=== PATIENT | female | born 1955 | race Caucasian/White ===

== ENCOUNTER 2016-05-10 20:27 | Emergency (ER) | payer BC ==
[2016-05-10] MEDS ORDERED: NS 0.9% 1000 ML* 1,000 ML IV ONE (20:44)
[2016-05-10] MEDS ORDERED: Aspirin Low Dose CHEW TAB* 81 MG PO ONE (20:44)
[2016-05-10 21:06] LABS: Hematocrit 37 % (35-47); Hemoglobin 12.4 g/dl (12.0-16.0); Mean Corpuscular HGB Conc 34 g/dl (31-36); Mean Corpuscular Hemoglobin 30 pg (27-31); Mean Corpuscular Volume 89 fL (80-97); Mean Platelet Volume 10 um3 (7.4-10.4); Red Cell Distribution Width 13 % (10.5-15); White Blood Count 5.1 10^3/ul (3.5-10.8)
[2016-05-10 21:28] LABS: Albumin 4.4 g/dL (3.2-5.2); BUN/Creatinine Ratio 33.3 (8-20); EGFR African American 131.6 (>60); EGFR Non-African American 102.3 (>60); Globulin 2.7 g/dL (2-4); Total Bilirubin 0.5 mg/dL (0.2-1.0); Total Protein 7.1 g/dL (6.4-8.9)
--- NOTE | 2016-05-10 21:31 | RAD ---
HISTORY: Supraventricular tachycardia COMPARISONS: November 04, 2012 VIEWS:1: Single frontal portable view of the chest at 8:56 PM FINDINGS: LINES AND TUBES: None. CARDIOMEDIASTINAL SILHOUETTE: The cardiomediastinal silhouette is normal for portable technique. PLEURA: The costophrenic angles are sharp. No pleural abnormalities are noted. LUNG PARENCHYMA: The lungs are clear. ABDOMEN: The upper abdomen is clear. There is no subphrenic gas. BONES AND SOFT TISSUES: No bone or soft tissue abnormalities are noted. IMPRESSION: NO ACTIVE CARDIOPULMONARY DISEASE.
--- NOTE | 2016-05-10 21:55 | ED ---
Dereje Vegas Billy, scribed for Jf Casas MD on 05/10/16 at 2057 . Palpitations / Dysrhythmia - HPI Summary HPI Summary: Patient is a 61 year-old female with a history of SVT coming to [facility] presenting with rapid heart beat at 2015 tonight. She was BIBA and given adenosine en route, which significantly improved her symptoms. She states that she measured a heart rate in the 220s, which improved to the 130s after adenosine. Patient reports dizziness and near-syncope at onset. Patient states that prior similar episodes have been related to hypokalemia. - History of Current Complaint Chief Complaint: EDDysrhythmPalp Time Seen by Provider: 05/10/16 20:36 Hx Obtained From: Patient Onset/Duration: Gradual Onset, Lasting Minutes, Still Present Timing: Constant Severity Initially: Moderate Severity Currently: Moderate Character: Fast Aggravating: Nothing Alleviating: Medication - adenosine Associated Signs & Symptoms: Dizzy - near-syncope - Allergy/Home Medications Allergies/Adverse Reactions: Allergies Allergy/AdvReac Type Severity Reaction Status Date / Time Azithromycin [From Zithromax] Allergy Rash Verified 05/10/16 21:05 PMH/Surg Hx/FS Hx/Imm Hx Endocrine/Hematology History: Denies: Hx Diabetes Respiratory History: Reports: Other Respiratory Problems/Disorders - SVT Denies: Hx Asthma, Hx Chronic Obstructive Pulmonary Disease (COPD) Musculoskeletal History: Denies: Hx Osteoporosis Neurological History: Reports: Other Neuro Impairments/Disorders - chronic fatigue syndrome - Cancer History Hx Chemotherapy: No Hx Radiation Therapy: No Infectious Disease History: No Infectious Disease History: Denies: Traveled Outside the [place] in Last 30 Days - Family History Known Family History: Positive: Hypertension - mother, Diabetes - mother Family History: Per EMR, mother with DM s/p kidney transplant. - Social History Alcohol Use: None Hx Substance Use: No Substance Use Type: Reports: None Hx Tobacco Use: No Smoking Status (MU): Never Smoked Tobacco Review of Systems Positive: Palpitations Neurological: Other - dizziness and near-syncope at onset All Other Systems Reviewed And Are Negative: Yes Physical Exam Triage Information Reviewed: Yes Vital Signs On Initial Exam: Initial Vitals Temp Pulse Resp BP Pulse Ox 98.2 F 99 16 138/91 98 05/10/16 20:27 05/10/16 20:27 05/10/16 20:27 05/10/16 20:27 05/10/16 20:27 Vital Signs Reviewed: Yes Diagnostics - Vital Signs Vital Signs Temp Pulse Resp BP Pulse Ox 05/10/16 20:27 98.2 F 99 16 138/91 98 - Laboratory Lab Results: Lab Results 05/10/16 05/10/16 Range/Units 20:40 20:40 WBC 5.1 (3.5-10.8) 10^3/ul RBC 4.10 (4.0-5.4) 10^6/ul Hgb 12.4 (12.0-16.0) g/dl Hct 37 (35-47) % MCV 89 (80-97) fL MCH 30 (27-31) pg MCHC 34 (31-36) g/dl RDW 13 (10.5-15) % Plt Count 247 (150-450) 10^3/ul MPV 10 (7.4-10.4) um3 Neut % (Auto) 70.2 (38-83) % Lymph % (Auto) 19.5 L (25-47) % Freestone % (Auto) 8.1 (1-9) % Eos % (Auto) 0.9 (0-6) % Baso % (Auto) 1.3 (0-2) % Absolute Neuts (auto) 3.6 (1.5-7.7) 10^3/ul Absolute Lymphs (auto) 1.0 (1.0-4.8) 10^3/ul Absolute Monos (auto) 0.4 (0-0.8) 10^3/ul Absolute Eos (auto) 0 (0-0.6) 10^3/ul Absolute Basos (auto) 0.1 (0-0.2) 10^3/ul Absolute Nucleated RBC 0 10^3/ul Nucleated RBC % 0.1 Sodium 138 (133-145) mmol/L Potassium 4.0 (3.5-5.0) mmol/L Chloride 105 (101-111) mmol/L Carbon Dioxide 27 (22-32) mmol/L Anion Gap 6 (2-11) mmol/L BUN 20 (6-24) mg/dL Creatinine 0.60 (0.51-0.95) mg/dL Est GFR ( Amer) 131.6 (>60) Est GFR (Non-Af Amer) 102.3 (>60) BUN/Creatinine Ratio 33.3 H (8-20) Glucose 156 H (70-100) mg/dL Calcium 9.0 (8.6-10.3) mg/dL Total Bilirubin 0.50 (0.2-1.0) mg/dL AST 47 H (13-39) U/L ALT 37 (7-52) U/L Alkaline Phosphatase 47 (34-104) U/L Total Protein 7.1 (6.4-8.9) g/dL Albumin 4.4 (3.2-5.2) g/dL Globulin 2.7 (2-4) g/dL Albumin/Globulin Ratio 1.6 (1-3) Result Diagrams: 05/10/16 20:40 05/10/16 20:40 Lab Statement: Any lab studies that have been ordered have been reviewed, and results considered in the medical decision making process. - Radiology CXR Xray Interpretation: No Acute Changes Radiology Interpretation Completed By: Radiologist - EKG 2034 EKG Interpretation: NSR 99 bpm, no ST elevation Course/Dx - Course Assessment/Plan: Patient is a 61 year-old female with a history of SVT coming to [facility] presenting with rapid heart beat at 2015 tonight. She was BIBA and given adenosine en route, which significantly improved her symptoms. She states that she measured a heart rate in the 220s, which improved to the 130s after adenosine. Patient reports dizziness and near-syncope at onset. Patient states that prior similar episodes have been related to hypokalemia. Bloodwork WNL. Glucose 156. Potassium is normal. The patient's EKG shows NSR [address] elevation. She hsa no chest pain and has no other complaints. Therefore she will be discharged home to follow up with PCP. She also was advised about medications to control SVT, however the patient refuses and will follow up with Dr. Vincent, who is her independent insurance adjuster. She was recommended to return to the ED with CP, SOB, palpitations, diaphoresis, or weakness. I discussed all the findings and test results with the patient. Patient was instructed to return to the emergency room immediately if any of the symptoms return or worsens. Plan of care was discussed with the patient and understands and agrees. All questions were answered at patient satisfaction. There were no further complaints or concerns. P/E: Lungs: CTA B/L. Good air exchange. No wheezing or crackles heard. CVS: S1 and S2 present. No murmurs appreciated. Patient is alert and oriented x 3. Patient is hemodynamically stable. Patient will be discharged home with follow up PMD and cardiology. - Diagnoses Provider Diagnoses: SVT (supraventricular tachycardia) Discharge - Discharge Plan Condition: Stable Disposition: HOME Patient Education Materials: Supraventricular Tachycardia (ED) Referrals: Rad Spangler MD [Primary Care Provider] - Willy Vincent MD [Medical Doctor] - The documentation as recorded by the Dereje sanchez Billy accurately reflects the service I personally performed and the decisions made by , Jf Casas MD.
[2016-05-11 03:31] VITALS: BP 115/77
== END 2016-05-10 23:00 | disposition home or self-care (01) ==
LOC: ED 20:27
DX: I47.1 Supraventricular tachycardia (principal); R42 Dizziness and giddiness; R55 Syncope and collapse; R00.2 Palpitations
CPT/HCPCS: 36415; 71010; 80053; 85025; 93005; 99283; A9270-GY

== ENCOUNTER → 2016-11-12 14:06 | Emergency (ER) | payer BC ==
--- NOTE | 2016-11-12 15:10 | RAD ---
INDICATION: Intracranial injury COMPARISON: None TECHNIQUE: Noncontrast axial source images were acquired from the skull base to the vertex. FINDINGS: Ventricles/sulci: The ventricles and cisterns are normal in size and configuration for age. Brain parenchyma: There is no focal parenchymal finding, evidence of intracranial mass, or intracranial mass effect. Intracranial hemorrhage:None. Extra-axial spaces: There are no abnormal extra axial fluid collections or evidence of extra-axial mass. Calvarium: There is no calvarial fracture or other calvarial abnormality. Scalp: There is no evidence of scalp or extracalvarial soft tissue abnormality. Paranasal sinuses/mastoid: The paranasal sinuses and mastoid air cells are clear. Other: None. IMPRESSION: NEGATIVE EXAMINATION
--- NOTE | 2016-11-12 15:21 | RAD ---
Indication: Right upper thigh pain. 2 views of the right femur demonstrates no fracture. Hip joint is well preserved. IMPRESSION: No fracture of the right femur is noted.
[2016-11-12 15:44] VITALS: BP 130/75
--- NOTE | 2016-11-12 18:31 | ED ---
Head Injury - HPI Summary HPI Summary: Patient presents to ED after a mechanical fall and striking back of head on the cement floor this morning. Denies LOC, but was confused upon rising. Denies memory loss. Slight nausea which has been intermittent since the accident. Endorses photophobia and RODRIGUEZ located over the right scientologist. She denies hitting her head before and denies any previous brain trauma. Denies blood thinners. Patient is otherwise healthy. Takes no medications. Non-smoker. Worse with lights and computer work, better with rest. She also states she is having right upper leg pain s/p fall and would like an xray of the area. - History Of Current Complaint Chief Complaint: EDHeadInjury Stated Complaint: FALL HEAD AND NECK PAIN Time Seen by Provider: 11/12/16 14:38 Hx Obtained From: Patient Mechanism Of Injury: Direct Blow Onset/Duration: Started Hours Ago Severity Currently: Moderate Severity Initially: Mild Pain Intensity: 2 Pain Scale Used: 0-10 Numeric Location of Head Injury: Occipital Location: Discrete At: - right temporal Character: Dull Alleviating Factor(s): Rest Associated Signs And Symptoms: Confusion, Nausea, Headache, Visual Changes - Risk Factors SDH Risk Factor: Negative - Allergies/Home Medications Allergies/Adverse Reactions: Allergies Allergy/AdvReac Type Severity Reaction Status Date / Time Azithromycin [From Zithromax] Allergy Rash Verified 11/12/16 14:11 PMH/Surg Hx/FS Hx/Imm Hx Previously Healthy: Yes Endocrine/Hematology History: Denies: Hx Diabetes Respiratory History: Reports: Other Respiratory Problems/Disorders - SVT Denies: Hx Asthma, Hx Chronic Obstructive Pulmonary Disease (COPD) Musculoskeletal History: Reports: Hx Osteoporosis - BORDERLINE Neurological History: Reports: Other Neuro Impairments/Disorders - chronic fatigue syndrome - Cancer History Hx Chemotherapy: No Hx Radiation Therapy: No - Immunization History Hx Pertussis Vaccination: No Immunizations Up to Date: Unable to Obtain/Confirm Infectious Disease History: Denies: Traveled Outside the [place] in Last 30 Days - Family History Known Family History: Positive: Hypertension - mother, Diabetes - mother Family History: Per EMR, mother with DM s/p kidney transplant. - Social History Occupation: Employed Full-time Lives: With Family Alcohol Use: None Hx Substance Use: No Substance Use Type: Reports: None Hx Tobacco Use: No Smoking Status (MU): Never Smoked Tobacco Review of Systems Constitutional: Negative Positive: Photophobia ENT: Negative Cardiovascular: Negative Respiratory: Negative Positive: Nausea Positive: no symptoms reported, see HPI Musculoskeletal: Negative Positive: Headache Psychological: Normal All Other Systems Reviewed And Are Negative: Yes Physical Exam Triage Information Reviewed: Yes Vital Signs On Initial Exam: Initial Vitals Temp Pulse Resp BP Pulse Ox 98.3 F 84 16 130/76 99 11/12/16 14:11 11/12/16 14:11 11/12/16 14:11 11/12/16 14:11 11/12/16 14:11 Vital Signs Reviewed: Yes Appearance: Positive: Well-Appearing, No Pain Distress, Well-Nourished Skin: Positive: Warm, Skin Color Reflects Adequate Perfusion Head/Face: Positive: Normal Head/Face Inspection Eyes: Positive: Normal, EOMI, GLADYS Neck: Positive: Supple, No Lymphadenopathy Respiratory/Lung Sounds: Positive: Breath Sounds Present Cardiovascular: Positive: Normal Musculoskeletal: Positive: Strength/ROM Intact Neurological: Positive: Sensory/Motor Intact, Speech Normal Diagnostics - Vital Signs Vital Signs Temp Pulse Resp BP Pulse Ox 11/12/16 15:42 98.3 F 85 16 130/75 11/12/16 14:11 98.3 F 84 16 130/76 99 - Laboratory Lab Statement: Any lab studies that have been ordered have been reviewed, and results considered in the medical decision making process. Head Injury Course/Dx Course Of Treatment: Patient sent to CT brain and right femur d/t fall. Both normal. Patient made aware and is OK with results. She is encouraged to return to her PCP for follow up. Post-concussive symptoms given. - Diagnoses Differential Diagnosis/HQI/PQRI: Concussion With LOC, Concussion Without LOC, Contusion Provider Diagnoses: Concussion Discharge - Discharge Plan Condition: Stable Disposition: HOME Patient Education Materials: Concussion (ED) Referrals: Rad Spangler MD [Primary Care Provider] - Additional Instructions: Post-Concussive Syndrome: short to long-term symptoms of insomnia, irritability, inability to concentrate , headaches, dizziness. Brain rest! This includes dark rooms, closing eyes as much as possible, sleeping as much as possible, decreasing the use of phones and television. Try to avoid watching bright screens, especially in dark rooms. Do not look directly at computers. Do not read, write or study. Listening to books on tape could be something to pass the time I recommend a week of brain rest and return very slowly to these activities. Follow up with your doctor this week or next. Do not return to contact sports until cleared by a physician.
== END | disposition home or self-care (01) ==
LOC: ED 14:06
DX: S06.0X0A Concussion without loss of consciousness, initial encounter (principal); W19.XXXA Unspecified fall, initial encounter; Y93.9 Activity, unspecified; Y92.9 Unspecified place or not applicable; Z88.1 Allergy status to other antibiotic agents
CPT/HCPCS: 70450; 99281

== ENCOUNTER 2016-11-19 15:20 | Emergency (ER) | payer BC ==
[2016-11-19 15:29] VITALS: BP 136/69
--- NOTE | 2016-11-19 15:38 | UC ---
Headache HPI - HPI Summary HPI Summary: 61 YEAR OLD FEMALE WITH A HISTORY OF MIGRAINES PRESENTS WITH COMPLAINS OF HEADACHE AFTER A FALL A WEEK AGO. SHE HAD A CT OF THE HEAD AND XRAY OF THE RIGHT THIGH BUT THE HEADACHE HAS GOTTEN PROGRESSIVELY WORSE. I WILL SEND HER TO THE ER FOR REPEAT CT OF THE HEAD. - History Of Current Complaint Chief Complaint: UCHeadatheron Stated Complaint: HEADACHE Time Seen by Provider: 11/19/16 15:32 Hx Obtained From: Patient ?: No Onset/Duration: Gradual Onset Onset Of Symptoms: Gradual Initially Headache Was: Moderate Currently Pain Is: Current Pain Scale(0-10)= - 5, Moderate Pain Scale Used: 0-10 Numeric - 5 Timing: Intermittent, Lasting: Character: Pressure - Allergies/Home Medications Allergies/Adverse Reactions: Allergies Allergy/AdvReac Type Severity Reaction Status Date / Time Azithromycin [From Zithromax] Allergy Rash Verified 11/19/16 15:29 PMH/Surg Hx/FS Hx/Imm Hx Previously Healthy: Yes - Surgical History Surgical History: Yes Surgery Procedure, Year, and Place: tonsils - Family History Known Family History: Positive: Hypertension - mother, Diabetes - mother Family History: Per EMR, mother with DM s/p kidney transplant. - Social History Alcohol Use: None Substance Use Type: None Smoking Status (MU): Never Smoked Tobacco Review of Systems Constitutional: Negative Skin: Negative Eyes: Negative ENT: Negative Respiratory: Negative Cardiovascular: Negative Gastrointestinal: Negative Genitourinary: Negative Motor: Negative Neurovascular: Negative Musculoskeletal: Negative Neurological: Negative Psychological: Negative All Other Systems Reviewed And Are Negative: Yes Physical Exam Triage Information Reviewed: Yes Vital Signs: Initial Vital Signs Temp 37.2 C 11/19/16 15:24 Pulse 90 11/19/16 15:24 Resp 18 11/19/16 15:24 BP 136/69 11/19/16 15:24 Pulse Ox 99 11/19/16 15:24 Eye Exam: Normal ENT Exam: Normal Dental Exam: Normal Neck exam: Normal Neck: Positive: 1 Respiratory Exam: Normal Cardiovascular Exam: Normal Abdominal Exam: Normal Musculoskeletal Exam: Normal Neurological Exam: Normal Psychological Exam: Normal Skin Exam: Normal Headache Course/Dx - Differential Dx/Diagnosis Provider Diagnoses: HEAD INJURY Discharge - Discharge Plan Condition: Stable Disposition: HOME Patient Education Materials: Acute Headache (ED) Referrals: Rad Spangler MD [Primary Care Provider] - Additional Instructions: PLEASE GO TO THE ER TO RULE OUT CRANIAL BLEED.
== END 2016-11-19 15:45 | disposition home or self-care (01) ==
LOC: UCEAST 15:20
DX: S09.90XA Unspecified injury of head, initial encounter (principal); W19.XXXA Unspecified fall, initial encounter; Y93.9 Activity, unspecified; Y99.9 Unspecified external cause status
CPT/HCPCS: 99211; G0463

== ENCOUNTER 2016-11-19 16:16 | Emergency (ER) | payer BC ==
--- NOTE | 2016-11-19 17:36 | RAD ---
INDICATION: Headache status post trauma. COMPARISON: Comparison is made with a prior CT of the brain from November 12, 2016. TECHNIQUE: Contiguous axial sections of the brain were obtained from the skull base to the vertex without contrast. FINDINGS: The ventricles, cisterns and sulci are within normal limits. No significant focal abnormality or mass effect is seen. There is no evidence for hemorrhage. No significant focal osseous abnormality is seen. The visualized portion of the paranasal sinuses and mastoid air cells appear clear. IMPRESSION: NO EVIDENCE FOR ACUTE INTRACRANIAL ABNORMALITY.
[2016-11-19 18:59] VITALS: BP 152/89
--- NOTE | 2016-11-20 19:21 | ED ---
Head Injury - HPI Summary HPI Summary: Patient presents to the ED with CC of migraine symptoms 1 week s/p head injury. She was sent here by for CT scan. For 1 week she states she had been feeling better from her original injury. She was seen in the ED last week by myself and dx with concussion based on her sxs. She was given brain rest and took time off work. Sxs resolved, then migraine RODRIGUEZ returned yesterday and today. Hx of migraines. But concerned because it was close to the time of her head injury. She is also concerned over a right upper lateral thigh bruise from the fall which has been slowly healing. She endorses photophobia, migraine is occurring behind the right eye and intermittent with decrease in symptoms with ibuprofen. - History Of Current Complaint Hx Obtained From: Patient Onset/Duration: Started Days Ago Onset of Pain: Immediate Severity Currently: Moderate Severity Initially: Moderate Pain Intensity: 5 Pain Scale Used: 0-10 Numeric Location of Head Injury: Diffuse - behind the right eye Character: Throbbing, Pressure Alleviating Factor(s): Rest - Risk Factors SDH Risk Factor: Negative <Anisa Tucker - Last Filed: 11/20/16 19:16> <Alicia Banks - Last Filed: 11/21/16 07:35> - History Of Current Complaint Chief Complaint: EDHeadache Stated Complaint: RULE OUT CRANIAL BLEED/SENT FROM [facility] Time Seen by Provider: 11/19/16 18:08 - Allergies/Home Medications Allergies/Adverse Reactions: Allergies Allergy/AdvReac Type Severity Reaction Status Date / Time Azithromycin [From Zithromax] Allergy Rash Verified 11/19/16 15:29 PMH/Surg Hx/FS Hx/Imm Hx Previously Healthy: Yes Endocrine/Hematology History: Denies: Hx Diabetes Respiratory History: Reports: Other Respiratory Problems/Disorders - SVT Denies: Hx Asthma, Hx Chronic Obstructive Pulmonary Disease (COPD) Musculoskeletal History: Reports: Hx Osteoporosis - BORDERLINE Neurological History: Reports: Other Neuro Impairments/Disorders - chronic fatigue syndrome - Cancer History Hx Chemotherapy: No Hx Radiation Therapy: No - Surgical History Surgery Procedure, Year, and Place: tonsils - Immunization History Hx Pertussis Vaccination: No Immunizations Up to Date: Unable to Obtain/Confirm Infectious Disease History: No Infectious Disease History: Denies: Traveled Outside the [place] in Last 30 Days - Family History Known Family History: Positive: Hypertension - mother, Diabetes - mother Family History: Per EMR, mother with DM s/p kidney transplant. - Social History Occupation: Employed Full-time Lives: With Family Alcohol Use: None Hx Substance Use: No Substance Use Type: Reports: None Hx Tobacco Use: No Smoking Status (MU): Never Smoked Tobacco <Anisa Tucker - Last Filed: 11/20/16 19:16> Review of Systems Constitutional: Negative Eyes: Negative Cardiovascular: Negative Respiratory: Negative Positive: no symptoms reported, see HPI Musculoskeletal: Negative Positive: Bruising - right lateral upper thigh Positive: Headache All Other Systems Reviewed And Are Negative: Yes <Anisa Tucker - Last Filed: 11/20/16 19:16> Physical Exam Triage Information Reviewed: Yes Vital Signs On Initial Exam: Initial Vitals Temp Pulse Resp BP Pulse Ox 97.9 F 92 20 139/76 97 11/19/16 16:40 11/19/16 16:40 11/19/16 16:40 11/19/16 16:40 11/19/16 16:40 Vital Signs Reviewed: Yes Appearance: Positive: Well-Appearing, Well-Nourished Skin: Positive: Warm, Skin Color Reflects Adequate Perfusion, Other - bruising to the right lateral upper thigh Head/Face: Positive: Normal Head/Face Inspection Eyes: Positive: EOMI, GLADYS, Conjunctiva Clear Neck: Positive: Supple, No Lymphadenopathy Respiratory/Lung Sounds: Positive: Clear to Auscultation, Breath Sounds Present Cardiovascular: Positive: Normal, RRR, Pulses are Symmetrical in both Upper and Lower Extremities Musculoskeletal: Positive: Normal, Strength/ROM Intact Neurological: Positive: Sensory/Motor Intact, Speech Normal Psychiatric: Positive: Normal AVPU Assessment: Alert - Chris Coma Scale Best Eye Response: 4 - Spontaneous Best Motor Response: 6 - Obeys Commands Best Verbal Response: 5 - Oriented Coma Scale Total: 15 <Anisa Tucker - Last Filed: 11/20/16 19:16> Vital Signs On Initial Exam: Initial Vitals Temp Pulse Resp BP Pulse Ox 97.9 F 92 20 139/76 97 11/19/16 16:40 11/19/16 16:40 11/19/16 16:40 11/19/16 16:40 11/19/16 16:40 <lAicia Banks - Last Filed: 11/21/16 07:35> Diagnostics - Vital Signs Vital Signs Temp Pulse Resp BP Pulse Ox 11/19/16 18:58 98.3 F 76 20 152/89 11/19/16 18:25 98.3 F 80 20 158/90 99 11/19/16 17:46 98.5 F 88 20 160/95 99 11/19/16 16:40 97.9 F 92 20 139/76 97 <Anisa Tucker - Last Filed: 11/20/16 19:16> - Vital Signs Vital Signs Temp Pulse Resp BP Pulse Ox 11/19/16 18:58 98.3 F 76 20 152/89 11/19/16 18:25 98.3 F 80 20 158/90 99 11/19/16 17:46 98.5 F 88 20 160/95 99 11/19/16 16:40 97.9 F 92 20 139/76 97 <Alicia Banks - Last Filed: 11/21/16 07:35> Head Injury Course/Dx Course Of Treatment: Patient sent here by for head injury 1 week ago for RODRIGUEZ now yesterday and today for CT scan. CT negative for any findings. Bruising noted over the right upper thigh with small hematoma under the skin. No evidence of clot or decreased circulation. Patient is OK for discharge. Likely this is a migraine. Patient agrees. - Diagnoses Differential Diagnosis/HQI/PQRI: Cerebral Contusion, Concussion With LOC, Concussion Without LOC, Hematoma <Anisa Tucker - Last Filed: 11/20/16 19:16> <Alicia Banks - Last Filed: 11/21/16 07:35> - Diagnoses Provider Diagnoses: Hematoma, Migraine Discharge <Anisa Tucker - Last Filed: 11/20/16 19:16> <Alicia Banks - Last Filed: 11/21/16 07:35> - Discharge Plan Condition: Stable Disposition: HOME Patient Education Materials: Migraine Headache (ED) Referrals: Rad Spangler MD [Primary Care Provider] - Additional Instructions: Symptoms of migraines are common around a head injury If symptoms become worse, please see your PCP or follow up with neurology. You may take Claritin in attempt to alleviate any symptoms related with allergies. Attestation Statement User Type: Provider - I was available for consult. This patient was seen by the [facility]. The patient was not presented to, seen by, or examined by me. -Stuart <Alicia Banks - Last Filed: 11/21/16 07:35>
== END 2016-11-19 18:58 | disposition home or self-care (01) ==
LOC: ED 16:16
DX: G43.909 Migraine, unspecified, not intractable, without status migrainosus (principal); S70.11XA Contusion of right thigh, initial encounter; W19.XXXA Unspecified fall, initial encounter; Y93.9 Activity, unspecified; Y92.89 Other specified places as the place of occurrence of the external cause
CPT/HCPCS: 70450; 99282

== ENCOUNTER 2017-07-14 16:27 | Emergency (ER) | payer BC ==
[2017-07-14 16:44] VITALS: BP 137/90
[2017-07-14] MEDS ORDERED: Tetan/Diph/Pertus SYR(Tdap)* 0.5 ML SYR(BOOSTRIX) use SYR IM ONE (17:03)
--- NOTE | 2017-07-14 17:13 | UC ---
Laceration HPI - HPI Summary HPI Summary: states she cut her fingers 2 days ago picking up a dehumidifier. The bottom of it had a sharp metal edge. Denies pain, fever or decreased ROM and cuts are healing. Denies tetanus vaccine for decades. - History Of Current Complaint Chief Complaint: UCLaceration Stated Complaint: FINGER LACERATIONS Time Seen by Provider: 07/14/17 16:40 Hx Obtained From: Patient Laceration Location: Finger Mechanism Of Injury: Sharp Trauma Onset/Duration: Sudden Onset, Lasting Days Severity: Mild Pain Intensity: 2 Aggravating Factors: Movement Hands: 1 - 8mm longitudinal superficial laceration 2 - linear transverse superficial laceration 5mm length - Allergies/Home Medications Allergies/Adverse Reactions: Allergies Allergy/AdvReac Type Severity Reaction Status Date / Time azithromycin Allergy See Comment Verified 07/14/17 16:45 Home Medications: Home Medications NK [No Home Medications Reported] 07/14/17 [History Confirmed 07/14/17] PMH/Surg Hx/FS Hx/Imm Hx Previously Healthy: Yes - Surgical History Surgical History: None Surgery Procedure, Year, and Place: tonsils - Family History Known Family History: Positive: Hypertension - mother, Diabetes - mother Family History: Per EMR, mother with DM s/p kidney transplant. - Social History Alcohol Use: None Substance Use Type: None Smoking Status (MU): Never Smoked Tobacco - Immunization History Most Recent Tetanus Shot: 10 plus years Review of Systems Constitutional: Negative All Other Systems Reviewed And Are Negative: Yes Physical Exam Triage Information Reviewed: Yes Appearance: Well-Appearing, No Pain Distress, Well-Nourished Vital Signs: Initial Vital Signs Temp 98.0 F 07/14/17 16:42 Pulse 74 07/14/17 16:42 Resp 18 07/14/17 16:42 BP 137/90 07/14/17 16:42 Pulse Ox 100 07/14/17 16:42 Vital Signs Reviewed: Yes Eyes: Positive: Conjunctiva Clear Cardiovascular: Positive: Pulses Normal, Brisk Capillary Refill Musculoskeletal: Positive: Strength Intact, ROM Intact, No Edema Neurological: Positive: Alert, Muscle Tone Normal Skin Exam: Other - superficial lacerations in both index fingers on volar surface, right index 8mm long on distal phalanx and left 5mm long on mid phalanx Laceration Course/Dx - Course/Dx Course Of Treatment: continue wound care, Tdap given to patient and observe for any reaction, patient tolerated injection well. f/u prn. Blood pressure slightly elevated without history of HTN, f/u with PCP - Differential Dx - Laceration/Wound Provider Diagnoses: Superficial laceration of fingers. Elevated BP without diagnosis of HTN Discharge - Sign-Out/Discharge Documenting (check all that apply): Discharge - Discharge Plan Condition: Stable Disposition: HOME Patient Education Materials: Acute Wound Care (ED), Laceration (ED), Tdap and Td Vaccines in Adults (ED), Chronic Hypertension (ED) Referrals: Rad Spangler MD [Primary Care Provider] - - Billing Disposition and Condition Condition: STABLE Disposition: HOME
== END 2017-07-14 17:40 | disposition home or self-care (01) ==
LOC: UCEAST 16:27
DX: S61.211A Laceration without foreign body of left index finger without damage to nail, initial encounter (principal); S61.210A Laceration without foreign body of right index finger without damage to nail, initial encounter; W26.8XXA Contact with other sharp object(s), not elsewhere classified, initial encounter; Y93.9 Activity, unspecified; Y92.9 Unspecified place or not applicable; Z23 Encounter for immunization; R03.0 Elevated blood-pressure reading, without diagnosis of hypertension; Z88.1 Allergy status to other antibiotic agents
CPT/HCPCS: 90471; 90715; 99212; G0463

== ENCOUNTER 2018-02-09 19:47 | Emergency (ER) | payer BC, MEDICAID ==
--- NOTE | 2018-02-09 20:34 | ED ---
Palpitations / Dysrhythmia - HPI Summary HPI Summary: This patient is a 62 year old F brought in by EMS to [facility] with a chief complaint of an episode of palpitations that occurred earlier tonight. She states she has a history of tachycardia episodes with some reaching 200 BPM in the past. She had a large cardiac workup 2 years ago including a stress and a halter monitor which showed a small valve leakage with low potassium. She states in the past when she has the episodes she takes potassium and this alleviated her sx. She has only had a few episodes in the last year with the most previous being last month that resolved with the salt. Last night at 0330 she woke up with palpitations and again the salt resolved it. This evening the episodes occurred again and the salt did not resolve it and this is why she came in today. The episode did resolve spontaneously and she states they usually last minutes. The patient rates the pain 0/10 in severity. Patient reports diarrhea. Pt denies CP. No hx of HTN. She states she is an anxious person. - History of Current Complaint Chief Complaint: EDDysrhythmPalp Time Seen by Provider: 02/09/18 20:00 Hx Obtained From: Patient Onset/Duration: Resolved Timing: Constant Severity Initially: Moderate Severity Currently: None Character: Fast Alleviating: Other - K+ salt Associated Signs & Symptoms: Negative - CP - Allergy/Home Medications Allergies/Adverse Reactions: Allergies Allergy/AdvReac Type Severity Reaction Status Date / Time azithromycin Allergy See Comment Verified 07/14/17 16:45 PMH/Surg Hx/FS Hx/Imm Hx Endocrine/Hematology History: Denies: Hx Diabetes Cardiovascular History: Reports: Other Cardiovascular Problems/Disorders - Rapid palpitations and "small valve leakage" Denies: Hx Congestive Heart Failure, Hx Deep Vein Thrombosis, Hx Hypercholesterolemia, Hx Hypotension, Hx Hypertension, Hx Pacemaker/ICD Respiratory History: Reports: Other Respiratory Problems/Disorders - SVT Denies: Hx Asthma, Hx Chronic Obstructive Pulmonary Disease (COPD) Musculoskeletal History: Reports: Hx Osteoporosis - BORDERLINE Neurological History: Reports: Other Neuro Impairments/Disorders - chronic fatigue syndrome Psychiatric History: Denies: Hx [facility] Tx - Cancer History Hx Chemotherapy: No Hx Radiation Therapy: No - Surgical History Surgery Procedure, Year, and Place: tonsils Infectious Disease History: No Infectious Disease History: Denies: Traveled Outside the [place] in Last 30 Days - Family History Known Family History: Positive: Hypertension - mother, Diabetes - mother Family History: Per EMR, mother with DM s/p kidney transplant. - Social History Lives: With Family Alcohol Use: None Hx Substance Use: No Substance Use Type: Reports: None Hx Tobacco Use: No Smoking Status (MU): Never Smoked Tobacco Review of Systems Negative: Fever Positive: Palpitations. Negative: Chest Pain Positive: Diarrhea All Other Systems Reviewed And Are Negative: Yes Physical Exam - Summary Physical Exam Summary: GENERAL: Patient is a well-developed and nourished F who is lying comfortable in the stretcher. Patient is not in any acute respiratory distress. HEAD AND FACE: Normocephalic EYES: PERRLA, EOMI x 2. EARS: Hearing grossly intact. MOUTH: Oropharynx within normal limits. NECK: Supple, trachea is midline, no adenopathy, no JVD, no carotid bruit. CHEST: Symmetric, no tenderness at palpation LUNGS: Clear to auscultation bilaterally. No wheezing or crackles. CVS: Regular rate and rhythm, S1 and S2 present, no murmurs or gallops appreciated. ABDOMEN: Soft, non-tender. Bowel sounds are normal. No abdominal abnormal pulsations. EXTREMITIES: Full ROM in all major joints, no edema, no cyanosis or clubbing. NEURO: Alert and oriented x 3. No acute neurological deficits. Speech is normal and follows commands. SKIN: Dry and warm Triage Information Reviewed: Yes Vital Signs On Initial Exam: Initial Vitals Temp Pulse Resp BP Pulse Ox 97.9 F 89 19 182/104 100 02/09/18 19:47 02/09/18 19:47 02/09/18 19:47 02/09/18 19:47 02/09/18 19:47 Vital Signs Reviewed: Yes Diagnostics - Vital Signs Vital Signs Temp Pulse Resp BP Pulse Ox 02/09/18 19:47 97.9 F 89 19 182/104 100 - Laboratory Result Diagrams: 02/09/18 20:44 02/09/18 20:44 Lab Statement: Any lab studies that have been ordered have been reviewed, and results considered in the medical decision making process. - EKG 2011 Cardiac Rate: NL EKG Rhythm: Sinus Rhythm - at 88 BPM Summary of EKG Findings: Normal axis. Normal interval. No ischemic changes. Course/Dx - Course Assessment/Plan: This patient is a 62 year old F brought in by EMS to [facility] with a chief complaint of an episode of palpitations that occurred earlier tonight. She states she has a history of tachycardia episodes with some reaching 200 BPM in the past. She had a large cardiac workup 2 years ago including a stress and a halter monitor which showed a small valve leakage with low potassium. She states in the past when she has the episodes she takes potassium and this alleviated her sx. She has only had a few episodes in the last year with the most previous being last month that resolved with the salt. Last night at 0330 she woke up with palpitations and again the salt resolved it. This evening the episodes occurred again and the salt did not resolve it and this is why she came in today. The episode did resolve spontaneously and she states they usually last minutes. The patient rates the pain 0/10 in severity. Patient reports diarrhea. Pt denies CP. No hx of HTN. She states she is an anxious person. An EKG reveals Normal axis. Normal interval. No ischemic changes. Blood work obtained. Pt has been NSR in the ED the whole time she is here. She is feeling better and I reviewed results with her. Her TSH was mildly elevated, I informed her of this and she states she knew already. Patient will be discharged and follow up from PCP. The patient is agreeable with this plan. - Diagnoses Provider Diagnoses: Palpitations Discharge - Sign-Out/Discharge Documenting (check all that apply): Patient Departure - Discharge Plan Condition: Stable Disposition: HOME Patient Education Materials: Heart Palpitations (DC) Referrals: Rad Spangler MD [Primary Care Provider] - Additional Instructions: Follow up with your primary care physician in 1-3 days. RETURN TO THE EMERGENCY DEPARTMENT FOR CHANGING OR WORSENING SYMPTOMS. - Attestation Statements Document Initiated by Scribe: Yes Documenting Scribe: Vipul Ann Provider For Whom [employer] is Documenting (Include Credential): Jamari Cannon MD Scribe Attestation: IVipul, scryamilaed for Jamari Cannon MD on 02/09/18 at [id number].
[2018-02-09 20:50] LABS: ABS Basophils 0.1 10^3/ul (0-0.2); ABS Eosinophils 0 10^3/ul (0-0.6); ABS Lymphocytes 0.8 10^3/ul (1.0-4.8); ABS Monocytes 0.4 10^3/ul (0-0.8); ABS Neutrophils 3.9 10^3/ul (1.5-7.7); ABS Nucleated RBC 0 10^3/ul; Eosinophil % 0.2 % (0-6); Hematocrit 38 % (35-47); Hemoglobin 12.9 g/dl (12.0-16.0); Lymphocyte % 15.3 % (25-47); Mean Corpuscular HGB Conc 34 g/dl (31-36); Mean Corpuscular Hemoglobin 30 pg (27-31); Mean Corpuscular Volume 90 fL (80-97); Mean Platelet Volume 9.2 fL (7.4-10.4); Nucleated Red Blood Cells % 0; Platelet Count 307 10^3/ul (150-450); Red Blood Count 4.26 10^6/ul (4.00-5.40); Red Cell Distribution Width 13 % (10.5-15); White Blood Count 5.1 10^3/ul (3.5-10.8)
[2018-02-09 20:59] LABS: INR 0.94 (0.77-1.02)
[2018-02-09 21:08] LABS: EGFR Non-African American 94.7 (>60)
[2018-02-09 22:50] VITALS: BP 135/75
== END 2018-02-09 22:49 | disposition home or self-care (01) ==
LOC: ED 19:47
DX: R00.2 Palpitations (principal); R19.7 Diarrhea, unspecified; Z82.49 Family history of ischemic heart disease and other diseases of the circulatory system; Z83.3 Family history of diabetes mellitus; Z88.1 Allergy status to other antibiotic agents
CPT/HCPCS: 36415; 80053; 83735; 84443; 84484; 85025; 85610; 85730; 93005; 99283